=== PATIENT | male | born 1955 | race African-American/Black ===

== ENCOUNTER 2020-07-06 12:17 | Inpatient (IN) | payer MEDICARE, OTHER ==
[~2020-07-06] VITALS: Ht 188 cm; Wt 81.6 kg
[2020-07-06 12:18] VITALS: BP 119/73
--- NOTE | 2020-07-06 12:26 | Emergency Room Report ---
History of Present Illness General Chief Complaint: Generalized Weakness Present Illness HPI 65 YO Male w. hx of renal failure on dialysis presents to the ED from home brought by RA after having dialysis for c/o increased weakness since Last Saturday. Pt. reports cough, sputum production, several episodes of vomiting non- bloody vomitus yesterday, and increased lethargy. Pt. denies fevers, chills, CP, SOB, LE edema/swelling, SINGER or dizziness. Pt. denies cardiac hx and reports recently had normal work up as an outpatient. Pt. reports being compliant regularly with his MWF dialysis, and has several doctors that oversee him. He denies recent travel or ill contacts. He reports he had some visitors the Saturday before onset of his symptoms. He denies abdominal pain or tenderness. Allergies: Coded Allergies: No Known Allergies (Unverified , 07/06/20) COVID-19 Screening Contact w/high risk pt: No Experienced COVID-19 symptoms?: No COVID-19 Testing performed PROVIDER RELATIONS MANAGER: Yes COVID-19 Screening: Negative COVID-19 COVID-19 Testing Source: 1 month ago Patient History Past Medical History: see triage record Past Surgical History: none Pertinent Family History: none Reviewed Nursing Documentation: PMH: Agreed; PSxH: Agreed Review of Systems All Other Systems: negative except mentioned in HPI Physical Exam Vital Signs Date Time Temp Pulse Resp B/P (MAP) Pulse Ox O2 Delivery O2 Flow Rate FiO2 07/06/20 12:09 98.8 97 16 119/73 (88) 100 Room Air Sp02 EP Interpretation: reviewed, normal General Appearance: no apparent distress, alert, GCS 15, non-toxic, lethargic, thin, Chronically Ill Head: normocephalic, atraumatic Eyes: bilateral eye normal inspection, bilateral eye PERRL ENT: hearing grossly normal, normal voice Neck: full range of motion Respiratory: chest non-tender, lungs clear, normal breath sounds, no respiratory distress, no wheezing, speaking full sentences Cardiovascular #1: regular rate, rhythm, no edema, normal capillary refill Gastrointestinal: non tender, soft Musculoskeletal: normal range of motion, gait/station normal, non-tender Neurologic: alert, motor strength/tone normal, oriented x3, sensory intact, responsive, speech normal Psychiatric: judgement/insight normal Skin: no rash, normal color Medical Decision Making PA Attestation Dr. Lozano is my supervising Physician whom patient management has been discussed with. Diagnostic Impression: Primary Impression: NSTEMI (non-ST elevated myocardial infarction) Additional Impression: COVID-19 ER Course 65 YO Male w. hx of renal failure on dialysis presents to the ED from home brought by RA after having dialysis for c/o increased weakness since Last Saturday. Pt. reports cough, sputum production, several episodes of vomiting non- bloody vomitus yesterday, and increased lethargy. Pt. denies fevers, chills, CP, SOB, LE edema/swelling, SINGER or dizziness. Pt. denies cardiac hx and reports recently had normal work up as an outpatient. Pt. reports being compliant regularly with his MWF dialysis, and has several doctors that oversee him. He denies recent travel or ill contacts. He reports he had some visitors the Saturday before onset of his symptoms. He denies abdominal pain or tenderness. Ddx considered but are not limited to : MS, MG, GB, AK, drug intoxication, hypovolemia, infection, rhabdomyolysis, ETOH, CVA/TIA, NMS, CHF, Post- ictal/seizures, Cardiac outflow obstruction, QT-prolongation, Brugada syndrome, or Anemia just to name a few. Vital signs: are WNL, pt. is afebrile H&PE are most consistent with generalized weakness in a patient with chronic illness requiring dialysis. Pt. is non-toxic in appearance. NAD, not showing signs of respiratory distress. ORDERS: - CBC pancytopenia -CMP: elevated BUN - 35 and CR-7.5 c/w on dialysis -BNP:1228 -Troponin:0.108 -CK:WNL -UA: Pending -CXR_ WNL -EK NSR w. RBBB - COVID-19: POSITIVE --COVID lab set ordered, pending results ED INTERVENTIONS: -1g Calcium IV - 325 ASA PO DISPOSITION: at this time pt. will be admitted to Dr. Nash for NSTEMI Dr. Nash agreed to admit the pt. and to continue pt. care management. Labs Test 07/06/20 12:30 White Blood Count 3.2 K/UL (4.8-10.8) Red Blood Count 4.25 M/UL (4.70-6.10) Hemoglobin 13.6 G/DL (14.2-18.0) Hematocrit 41.0 % (42.0-52.0) Mean Corpuscular Volume 96 FL (80-99) Mean Corpuscular Hemoglobin 31.9 PG (27.0-31.0) Mean Corpuscular Hemoglobin Concent 33.1 G/DL (32.0-36.0) Red Cell Distribution Width 16.1 % (11.6-14.8) Platelet Count 138 K/UL (150-450) Mean Platelet Volume 8.9 FL (6.5-10.1) Neutrophils (%) (Auto) % (45.0-75.0) Lymphocytes (%) (Auto) % (20.0-45.0) Monocytes (%) (Auto) % (1.0-10.0) Eosinophils (%) (Auto) % (0.0-3.0) Basophils (%) (Auto) % (0.0-2.0) Differential Total Cells Counted 100 Neutrophils % (Manual) 61 % (45-75) Lymphocytes % (Manual) 30 % (20-45) Monocytes % (Manual) 8 % (1-10) Eosinophils % (Manual) 1 % (0-3) Basophils % (Manual) 0 % (0-2) Band Neutrophils 0 % (0-8) Platelet Estimate Decreased Platelet Morphology Normal Anisocytosis 1+ Sodium Level 136 MMOL/L (136-145) Potassium Level 4.5 MMOL/L (3.5-5.1) Chloride Level 98 MMOL/L (98-107) Carbon Dioxide Level 32 MMOL/L (21-32) Anion Gap 6 mmol/L (5-15) Blood Urea Nitrogen 35 mg/dL (7-18) Creatinine 7.2 MG/DL (0.55-1.30) Estimat Glomerular Filtration Rate 7.6 mL/min (>60) Glucose Level 103 MG/DL (74-106) Calcium Level 8.6 MG/DL (8.5-10.1) Total Bilirubin 0.4 MG/DL (0.2-1.0) Aspartate Amino Transf (AST/SGOT) 37 U/L (15-37) Alanine Aminotransferase (ALT/SGPT) 19 U/L (12-78) Alkaline Phosphatase 52 U/L (46-116) Total Creatine Kinase 96 U/L (26-308) Troponin I 0.108 ng/mL (0.000-0.056) Pro-B-Type Natriuretic Peptide 1228 pg/mL (0-125) Total Protein 7.8 G/DL (6.4-8.2) Albumin 3.6 G/DL (3.4-5.0) Globulin 4.2 g/dL Albumin/Globulin Ratio 0.9 (1.0-2.7) EKG Diagnostic Results Troponin ordered: Yes When was troponin ordered?: Jul 06, 2020 EKG Time: 12:47 Rate: normal - 77 Rhythm: NSR ST Segments: no acute changes Other Impression peaked T-waves, RBBB. ASA given to the pt in ED: Yes KAELYN Scribe Text This Interpretation was scribed by KAELYN Vera. Chest X-Ray Diagnostic Results Chest X-Ray Diagnostic Results : Chest X-Ray Ordered: Yes # of Views/Limited/Complete: 1 View Indication: Other - productive cough, and generalized weakness. EP Interpretation: Yes KAELYN Xray: Interpretation reviewed, by supervising MD Interpretation: no consolidation, no effusion, no pneumothorax Impression: No acute disease Electronically Signed by: Irais Vera PA-C Last Vital Signs Date Time Temp Pulse Resp B/P (MAP) Pulse Ox O2 Delivery O2 Flow Rate FiO2 07/06/20 12:18 97 16 Room Air 07/06/20 12:18 98.8 119/73 100 Status: unchanged Disposition: ADMITTED INPATIENT Condition: Serious Scripts Unable to Obtain Active Prescriptions or Reported Meds Irais Vera Jul 06, 2020 12:26
[2020-07-06 12:55] LABS: HEMOGLOBIN 13.6 G/DL (14.2-18.0); MEAN CORPUSCULAR VOLUME 96 FL (80-99); PLATELET COUNT 138 K/UL (150-450); RED BLOOD COUNT 4.25 M/UL (4.70-6.10); RED CELL DISTRIBUTION WIDTH 16.1 % (11.6-14.8); WHITE BLOOD COUNT 3.2 K/UL (4.8-10.8)
[2020-07-06] MEDS ORDERED: Calcium Gluconate 1gm/50ml 50 ML IVPB ONE (13:00)
[2020-07-06 13:10] LABS: ANION GAP 6 mmol/L (5-15); BLOOD UREA NITROGEN 35 mg/dL (7-18); CALCIUM 8.6 MG/DL (8.5-10.1); CARBON DIOXIDE 32 MMOL/L (21-32); CHLORIDE 98 MMOL/L (98-107); CREATININE 7.2 MG/DL (0.55-1.30); POTASSIUM 4.5 MMOL/L (3.5-5.1); SODIUM 136 MMOL/L (136-145)
[2020-07-06 13:22] LABS: ALANINE AMINOTRANSFERASE 19 U/L (12-78); ALBUMIN 3.6 G/DL (3.4-5.0); ALBUMIN/GLOBULIN RATIO 0.9 (1.0-2.7); ALKALINE PHOSPHATASE 52 U/L (46-116); ASPARTATE AMINO TRANSFERASE 37 U/L (15-37); BILIRUBIN,TOTAL 0.4 MG/DL (0.2-1.0); CREATINE KINASE 96 U/L (26-308)
--- NOTE | 2020-07-06 13:42 | Diagnostic Imaging Report ---
Indication: Chest pain Technique: One view of the chest Comparison: none Findings: Lungs and pleural spaces are clear. Heart size is normal. Impression: No acute process
[2020-07-06 14:30] VITALS: BP 113/68
--- NOTE | 2020-07-06 18:05 | History and Physical Report ---
DATE OF ADMISSION: 07/06/2020 HISTORY OF PRESENT ILLNESS: This is a 65-year-old male who came to the emergency room for having he has been not feeling well. Patient had dialysis today. Has been feeling chills, cough, diarrhea. He is not short of breath, but he has been feeling weakness for the last few days. Patient claims also has been drinking alcohol, not routinely, but last drink was on Saturday. He is also a smoker. Patient currently finished hemodialysis today. PAST MEDICAL HISTORY: Significant for CHF, fluid overload, cardiomyopathy, hypertension, end-stage renal disease, on hemodialysis. MEDICATIONS: See the list. ALLERGIES: NKA. FAMILY HISTORY: Noncontributory. SOCIAL HISTORY: Patient lives at home by himself. He smokes a pack a day. Drinks alcohol occasionally. REVIEW OF SYSTEMS: Generalized weakness, tired, fever, chills, weight loss, poor appetite, and has diarrhea for last few days. PHYSICAL EXAMINATION: VITAL SIGNS: Blood pressure in the hospital 134/70, pulse 80s to 100, respirations 18, temperature no fever. SKIN: Little dry. HEENT: AT/NC. EOMI. PERRLA. NECK: Supple. CHEST: Bilaterally few crackles. CARDIOVASCULAR: Regular rhythm. Tachycardia. ABDOMEN: Soft. Positive bowel sounds. Mild tenderness. EXTREMITIES: No edema. GENITOURINARY: Deferred. LABORATORY DATA: Pending. ASSESSMENT: 1. Palpitation. 2. Rule out sepsis. 3. Cardiac arrhythmia. 4. CHF. 5. Hypertension. 6. Weakness. PLAN: We will admit on tele bed. Consider Cardiology consult. Discussed with . . Continue IV antibiotics. Also consider ID consult. Follow up the laboratories. Cardiac monitoring. We will do the COVID test. London Nash M.D. DR: CARMEN JOB#: [id number] CC:
[2020-07-06 19:09] VITALS: BP 109/66
[2020-07-06] MEDS ORDERED: dexAMETHasone 10mg/ml Inj IV ONE (21:00)
[2020-07-06] MEDS ORDERED: Azithromycin 500 MG in NS 275 ML IV ONE (21:00)
[2020-07-06] MEDS ORDERED: cefTRIAXone 1 GM in NS 55 ML IVPB ONE (21:00)
[2020-07-06 21:28] LABS: INR 1.1 (0.9-1.1)
[2020-07-06 22:00] VITALS: BP 104/67
[2020-07-06 23:30] VITALS: BP 109/69
[2020-07-07 01:30] VITALS: BP 107/78
[2020-07-07 03:30] VITALS: BP 110/85
[2020-07-07 06:30] VITALS: BP 107/69
--- NOTE | 2020-07-07 09:47 | General Progress Note ---
Subjective Constitutional: Reports: chills, fever HEENT: Reports: no symptoms Cardiovascular: Reports: chest pain, irregular heart rate, palpitations Respiratory: Reports: cough Gastrointestinal/Abdominal: Reports: no symptoms Genitourinary: Reports: no symptoms Neurologic/Psychiatric: Reports: no symptoms Endocrine: Reports: no symptoms Allergies: Coded Allergies: No Known Allergies (Unverified , 07/06/20) Subjective feels better Objective Last 24 Hour Vital Signs Date Time Temp Pulse Resp B/P (MAP) Pulse Ox O2 Delivery O2 Flow Rate FiO2 07/07/20 08:47 98.5 82 21 107/69 100 Room Air 07/07/20 06:30 98.5 82 21 107/69 100 Room Air 07/07/20 03:30 98.5 79 20 110/85 99 Room Air 07/07/20 01:30 98.5 78 20 107/78 98 Room Air 07/06/20 23:34 98.5 07/06/20 23:30 98.5 85 20 109/69 96 Room Air 07/06/20 22:00 98.9 73 23 104/67 100 Room Air 07/06/20 19:09 98.8 88 21 109/66 100 Room Air 07/06/20 14:30 98.8 78 21 113/68 98 Room Air 07/06/20 12:18 97 16 Room Air 07/06/20 12:18 98.8 97 16 119/73 100 Room Air 07/06/20 12:09 98.8 97 16 119/73 (88) 100 Room Air Intake and Output 07/06/20 07/07/20 19:00 07:00 Intake Total 50 ml Output Total 0 ml Balance 50 ml Intake IV Total 50 ml Output Urine Total 0 ml Laboratory Tests 07/06/20 12:30: White Blood Count 3.2L, Red Blood Count 4.25L, Hemoglobin 13.6L, Hematocrit 41.0L, Mean Corpuscular Volume 96, Mean Corpuscular Hemoglobin 31.9H, Mean Corpuscular Hemoglobin Concent 33.1, Red Cell Distribution Width 16.1H, Platelet Count 138L, Mean Platelet Volume 8.9, Neutrophils (%) (Auto) , Lymphocytes (%) (Auto) , Monocytes (%) (Auto) , Eosinophils (%) (Auto) , Basophils (%) (Auto) , Differential Total Cells Counted 100, Neutrophils % (Manual) 61, Lymphocytes % (Manual) 30, Monocytes % (Manual) 8, Eosinophils % (Manual) 1, Basophils % (Manual) 0, Band Neutrophils 0, Platelet Estimate DecreasedL, Platelet Morphology Normal, Anisocytosis 1+, Prothrombin Time 11.7H, Prothromb Time International Ratio 1.1, Activated Partial Thromboplast Time 30, D-Dimer 0.49, Sodium Level 136, Potassium Level 4.5, Chloride Level 98, Carbon Dioxide Level 32, Anion Gap 6, Blood Urea Nitrogen 35H, Creatinine 7.2H, Estimat Glomerular Filtration Rate 7.6, Glucose Level 103, Lactic Acid Level 0.80, Calcium Level 8.6, Ferritin 1522H, Total Bilirubin 0.4, Aspartate Amino Transf (AST/SGOT) 37, Alanine Aminotransferase (ALT/SGPT) 19, Alkaline Phosphatase 52, Lactate Dehydrogenase 293H, Total Creatine Kinase 96, Troponin I 0.108H, C-Reactive Protein, Quantitative 7.4H, Pro-B-Type Natriuretic Peptide 1228H, Total Protein 7.8, Albumin 3.6, Globulin 4.2, Albumin/Globulin Ratio 0.9L Height (Feet): 6 Height (Inches): 2.00 Weight (Pounds): 180 General Appearance: alert EENT: PERRL/EOMI Neck: supple Cardiovascular: regular rhythm Respiratory/Chest: crackles/rales Abdomen: non tender, soft Pelvis: normal external exam Genitourinary/Rectal: normal genital exam Extremities: non-tender Edema: trace edema Neurologic: short range air defense artillery II-XII grossly normal Skin: warm/dry Assessment/Plan Assessment/Plan: acs covod 19 chf fluid overload esrd on hd asa r/o mi cardio, pulmo nephro consullt renal diet cont isolation Cedric Nash MD Jul 07, 2020 09:46
[2020-07-07] MEDS ORDERED: HYDROcodone/Acetamin 5/325 tab ORAL PRN (10:15)
[2020-07-07] MEDS ORDERED: dexAMETHasone 10mg/ml Inj IV SCH (10:20)
[2020-07-07 11:56] VITALS: BP 158/79
[2020-07-07 16:00] VITALS: BP_SYST 134; BP_SYST 98; BP_DIAS 69; BP_DIAS 72
--- NOTE | 2020-07-07 16:00 | Consultation ---
DATE OF CONSULTATION: 07/07/2020 INFECTIOUS DISEASE CONSULTATION This consult is for coverage of Dr. Stringer. CONSULTING PHYSICIAN: Sourav Kowalski MD PRIMARY ATTENDING: Cedric Nash MD REASON FOR CONSULTATION: COVID-19 disease. HISTORY OF PRESENT ILLNESS: This is a 65-year-old male admitted yesterday because of weakness. Patient had history of end-stage renal disease. Developed weakness after hemodialysis. The next day, he also had vomiting and diarrhea. No significant coughing and no fever. PAST MEDICAL HISTORY: End-stage renal disease on hemodialysis. ALLERGIES: No known drug allergies. MEDICATIONS: Getting dexamethasone, ceftriaxone, azithromycin, Zofran, [place], Tylenol. SOCIAL HISTORY: Single. Smoker. Admits also drinking occasionally. REVIEW OF SYSTEMS: As per history of present illness. Today has no nausea, vomiting. No fever. PHYSICAL EXAMINATION: VITAL SIGNS: Temperature 98.2, pulse 72, blood pressure is 158/79. GENERAL APPEARANCE: Seems to be well developed, no acute distress. HEAD AND NECK: [place] conjunctivae. HEART: Normal rate. LUNGS: Clear. Patient is on room air oxygen. No respiratory distress. ABDOMEN: Soft, nontender. EXTREMITIES: No edema. NEUROLOGIC: He is awake, alert, oriented x3. LABORATORY DATA: COVID test was positive. WBC 3.2, hemoglobin 13.6, hematocrit 41, platelets 138. Troponin is 0.108. Sodium 136, potassium 4.5, chloride 68, bicarb 32, BUN 35, creatinine 7.2, glucose is 103. Chest x-ray was negative. IMPRESSION: COVID-19 disease. Patient mostly has GI symptoms including diarrhea. Has elevated troponin, likely non-ST elevation [place]. Has end-stage renal disease. Has leukopenia and thrombocytopenia. RECOMMENDATION: SContinue dexamethasone and antibiotics. We will follow up the patient clinically. At the end of my exam, I thank Dr. Nash, for involving me in the care of this patient. Sourav Kowalski M.D. DR: JAYLON JOB#: [id number] CC: LEIA
--- NOTE | 2020-07-07 17:30 | Consultation ---
DATE OF CONSULTATION: 07/07/2020 PULMONARY CONSULTATION CONSULTING PHYSICIAN: Riccardo Carranza MD ATTENDING PHYSICIAN: Cedric Nsah MD REASON FOR CONSULTATION: COVID-19. HISTORY OF PRESENT ILLNESS: This is a 65-year-old male with past medical history of end-stage renal failure, on dialysis (Saturday, Saturday, Saturday), who presented to the ER from home for evaluation of generalized weakness associated with nausea, vomiting, chills, and diarrhea for 3 days. The patient also reports intermittent cough, sputum production, several episodes of vomiting nonbloody vomitus as well as increased lethargy. The patient denies cardiac history. The patient reports being compliant with his dialysis schedule. On evaluation today, the patient appears not in acute distress, showing normal work of breathing on room air, without coughing during my exam. The patient denies fever. The patient does report of a single episode of pain today in his left posterior mid-back. The patient denies history of kidney stone or any urinary symptoms. The patient is positive for COVID-19. Chest x-ray showed clear lungs and pleural spaces. Initial laboratory studies showed pancytopenia, elevated BUN and creatinine, and troponin 0.18. Initial laboratory studies showed pancytopenia, elevated BUN and creatinine, troponin 0.108, CRP 7.4, LDH 293, ferritin 1522, and D-dimer 0.49. The patient received 1 gram calcium IV, 325 mg aspirin oral in the ED, and is now admitted to the hospital for COVID-19 infection and NSTEMI. PAST MEDICAL HISTORY: End-stage renal disease, on dialysis. MEDICATIONS: Full list of home medication is unavailable at this time. ALLERGIES: No known allergies. FAMILY HISTORY: Unknown. PERSONAL/SOCIAL HISTORY: Lives at home. REVIEW OF SYSTEMS: Negative except as mentioned in HPI. PHYSICAL EXAMINATION: VITAL SIGNS: Blood pressure 158/79, heart rate 86, respiratory rate 21, weight 81 kg, and height 188 cm. HEENT: Head exam reveals that the head is normocephalic, atraumatic without deformity or unusual swelling. Pupils are PERRLA. Nasal mucosa is pink. Vision is normal. CHEST AND LUNGS: Reveals clear, normal, symmetrical breath sounds with no adventitious sounds. CARDIOVASCULAR: Reveals normal S1, S2 without murmurs, rubs, or clicks. ABDOMEN: Soft with no tenderness or organomegaly. RECTAL: Deferred. MUSCULOSKELETAL: There is no tenderness to palpation. NEUROLOGICAL: Cranial nerves II through XII are intact. LABORATORY DATA: Lab testing shows WBC 3.2, RBC 4.25, hemoglobin 13.6, hematocrit 41.0, and platelet count 138,000. Chemistries show BUN 35, creatinine 7.2, ferritin 1522, LDH 293, troponin 0.108, CRP 7.4, and BNP 1228. IMPRESSION: 1. COVID-19 infection. - The patient is currently saturating well on room air. - Chest x-ray is clear. - Given his normoxemia, no specific intervention is needed for COVID-19 at this point. - Continue monitoring SaO2, and provide supplemental oxygen as needed. - Continue respiratory isolation. 2. NSTEMI. - Rule out NH. - Cardio following. 3. ESRD, on dialysis. - Continue dialysis. Thank you for your consultation and we will follow carefully. The care for this patient was discussed with my supervising physician. Time spent on this case was 31 minutes. Riccardo Carranza M.D. KAELYN Munoz DR: Rosyln JOB#: [id number] CC: LEIA
--- NOTE | 2020-07-07 18:22 | Cardiology Progress Note ---
Assessment/Plan Assessment/Plan The patient is seen and examined, full consult note is dictated. Objective Last 24 Hour Vital Signs Date Time Temp Pulse Resp B/P (MAP) Pulse Ox O2 Delivery O2 Flow Rate FiO2 07/07/20 16:00 97.1 70 20 134/72 (92) 97 07/07/20 16:00 95 07/07/20 12:00 72 07/07/20 11:56 98.2 86 21 158/79 (105) 99 07/07/20 10:40 Room Air 07/07/20 09:19 87 07/07/20 08:47 98.5 82 21 107/69 100 Room Air 07/07/20 06:30 98.5 82 21 107/69 100 Room Air 07/07/20 03:30 98.5 79 20 110/85 99 Room Air 07/07/20 01:30 98.5 78 20 107/78 98 Room Air 07/06/20 23:34 98.5 07/06/20 23:30 98.5 85 20 109/69 96 Room Air 07/06/20 22:00 98.9 73 23 104/67 100 Room Air 07/06/20 19:09 98.8 88 21 109/66 100 Room Air Intake and Output 07/06/20 07/07/20 19:00 07:00 Intake Total 50 ml Output Total 0 ml Balance 50 ml IV Total 50 ml Output Urine Total 0 ml Microbiology Date/Time Source Procedure Growth Status 07/06/20 17:50 Nasopharynx SARS-CoV-2 RdRp Gene Assay - Final Complete Jose Don MD Jul 07, 2020 18:22
[2020-07-07] MEDS: Enoxaparin 30mg Inj SUBQ SCH (18:37)
[2020-07-07] MEDS: Metoprolol Succinate XL 25mg tab ORAL SCH (18:38)
[2020-07-07] MEDS: Aspirin Baby 81mg ORAL SCH (18:38)
--- NOTE | 2020-07-07 19:02 | Consultation ---
DATE OF CONSULTATION: 07/07/2020 CARDIOLOGY CONSULTATION CONSULTING PHYSICIAN: Jose Don MD. REFERRING PHYSICIAN: Cedric Nash MD. REASON FOR CONSULTATION: Management of non-ST elevation myocardial infarction. HISTORY OF PRESENT ILLNESS: The patient is a very unfortunate 65-year-old gentleman who presents to the hospital with complaints of increased generalized weakness since last Saturday with associated productive cough as well as nausea and nonbloody vomiting and altered level of consciousness. The patient denied any fever, chest pain, or shortness of breath. His past medical history is significant for end-stage renal disease, on hemodialysis three days a week and according to him he has been compliant with his dialysis. At the time of arrival to this facility, blood pressure was 119/73 mmHg and heart rate was 97. He was afebrile. PAST MEDICAL HISTORY: Significant for end-stage renal disease. MEDICATIONS: List of medications unknown. ALLERGIES: No known drug allergies. FAMILY HISTORY: No premature coronary artery disease in the first-degree relatives. SURGICAL HISTORY: None besides dialysis AV shunt. REVIEW OF SYSTEMS: Twelve system review done and is essentially negative.CONSTITUTIONAL: Complains of generalized weakness and fatigue. No fever and chills. HEENT: The patient denies any headache, diplopia, blurred vision. CARDIOVASCULAR: Positive for shortness of breath with exertion, but no chest pain. No PND, orthopnea, or leg swelling. PULMONARY: Positive for nonproductive cough and shortness of breath, but no hemoptysis. GASTROINTESTINAL: Positive for nausea and vomiting, which is mostly nonbloody emesis. No abdominal pain or GI bleed. GENITOURINARY: Denies any hematuria, dysuria, or incontinence. NEUROLOGIC: Denies any motor dysfunction, sensory deficit, or altered speech. PHYSICAL EXAMINATION: VITAL SIGNS: Blood pressure is 119/73, pulse of 97, respirations 16, temperature 98.8 degrees Fahrenheit. O2 saturation 100% on room air. GENERAL: The patient is a very unfortunate 65-year-old gentleman, in no apparent respiratory distress, lethargic, chronically ill-looking and cachectic. HEENT: Atraumatic and normocephalic. Anicteric. Pupils are equal, round, and reactive to light and accommodation. Extraocular muscles intact. NECK: JVP is less than 5 cm. No carotid bruit. Carotid upstrokes 2+ bilaterally. CARDIOVASCULAR: Normal S1, S2. Regular rate and rhythm. No murmurs, gallops, or rubs. PMI is at fourth intercostal space in the midclavicular line. LUNGS: Clear to auscultation bilaterally. ABDOMEN: Soft, nontender, and nondistended. No hepatosplenomegaly. Positive bowel sounds. EXTREMITIES: No evidence of edema, clubbing, or cyanosis. LABORATORY FINDINGS: WBC is 3.2, hemoglobin of 13.6, hematocrit 41.0, platelet count 138,000. Sodium 136, potassium 4.5, chloride 98, bicarbonate 32, BUN 35, creatinine 7.2. Glucose is 103. Calcium is 8.6. Troponin I was 0.108. ProBNP was 1228. INR was 1.1. D-dimer was 0.49. Chest x-ray showed no acute cardiopulmonary disease. A 12-lead electrocardiogram was significant for sinus rhythm with trifascicular block including first-degree AV block, left anterior fascicular block, and right bundle-branch block. There was no evidence for acute ischemic features, heart rate of 67. ASSESSMENT AND PLAN: The patient is a very unfortunate 65-year-old gentleman seen in Cardiology consultation. 1. Slight elevation of troponin I level in this patient could be suddenly due to troponin leakage with end-stage renal disease, versus type 2 non-ST elevation myocardial infarction versus COVID-19 infection. We would like to obtain serial troponin I level measurement. The patient requires to be on aspirin as well as enoxaparin DVT prophylaxis dose. We will metoprolol for double product control and atorvastatin. 2. 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 We will continue monitoring heart rate and rhythm. 3. COVID-19 infection. Chest x-ray showed no acute cardiopulmonary disease. Lovenox DVT prophylactic dose would be adequate. 4. End-stage renal disease. I would like to thank Dr. Nash for the courtesy of this consultation. Jose Don M.D. DR: ISACC JOB#: [id number] CC:
[2020-07-07 20:00] VITALS: BP 105/61
[2020-07-07] MEDS: Atorvastatin 20mg tab ORAL SCH (20:55)
[2020-07-07] MEDS ORDERED: cefTRIAXone 1 GM in D5W 55 ML IVPB SCH (21:00)
--- NOTE | 2020-07-07 21:45 | Consultation ---
DATE OF CONSULTATION: 07/07/2020 NEPHROLOGY CONSULTATION CONSULTING PHYSICIAN: Cheryl Condon MD REFERRING PHYSICIAN: London Nash MD REASON FOR CONSULTATION: End-stage renal disease, need for dialysis. HISTORY OF PRESENT ILLNESS: This patient is an unfortunate 65-year-old male with past medical history significant for end-stage renal disease, anemia of chronic kidney disease, renal osteodystrophy, hypertension, who was then presented to [facility]. He is complaining of increasing generalized weakness, associated with productive cough as well as nausea and vomiting and altered mental status. The patient denies having any fever, chills, or shortness of breath and he was evaluated in the ER, found to have blood pressure of 119/73, pulse of 97. The patient was found to be COVID positive, was admitted in the isolation unit. I would follow up for management of renal disease and electrolyte imbalance. PAST MEDICAL HISTORY: Includin. End-stage renal disease. 2. Anemia of chronic kidney disease. 3. Renal osteodystrophy. 4. Hypertension. MEDICATIONS: List was reviewed. ALLERGIES: No known drug allergies. FAMILY HISTORY: Negative. PAST SURGICAL HISTORY: History of AV fistula placement. REVIEW OF SYSTEMS: GENERAL: Complained of generalized weakness and fatigue. There is no fever or chills. HEAD AND NECK: Denies any dysphagia, odynophagia, blurry vision, or neck stiffness. PULMONARY: Complained of shortness of breath, cough. CARDIOVASCULAR: Complained of shortness of breath. No orthopnea or PND or leg swelling. GASTROINTESTINAL: Complained of nausea and vomiting. No melena, hematemesis, or hematochezia. GENITOURINARY: Denies any dysuria, frequency, or hematuria. MUSCULOSKELETAL: Denies any weakness or numbness. PHYSICAL EXAMINATION: VITAL SIGNS: The patient has a temperature of 97, blood pressure 134/72, pulse rate of 97. HEAD AND NECK: No JVP. No LAD. No thyromegaly. Extraocular movement intact. Pupils are reactive to light and accommodation. LUNGS: Clear to auscultation. CARDIAC: Regular rate and rhythm. S1 and S2. No murmur. No rub. ABDOMEN: Soft, nontender, and nondistended. EXTREMITIES: No edema. No clubbing. No cyanosis. LABORATORY DATA: Sodium of 136, potassium of 4.5, 98 chloride, 32 bicarbonate, BUN of 35, creatinine of 7.2, and calcium of 8.6. Troponin 0.18. BNP of 1228. CBC revealed wbc count of 3.2, hemoglobin of 13.5, hematocrit of 41, and platelet count of 138. ASSESSMENT: 1. End-stage renal disease. 2. Anemia of chronic kidney disease. At this time, hemoglobin is acceptable level. 3. Renal osteodystrophy. Need to check the calcium, phosphorous, and PTH. 4. Non-ST elevation [place]. 5. COVID infection. PLAN: The plan for the patient is to receive the dialysis. Monitor renal function and electrolytes closely. Check the calcium, phosphorous, and PTH for evaluation of renal osteodystrophy. Monitor respiratory status closely. Again, I would like to thank Dr. Nash for letting me participate in the care of this patient. Cheryl Condon M.D. DR: SILAS JOB#: [id number] CC:
[2020-07-08] VITALS: BP 108/57
[2020-07-08 04:00] VITALS: BP 120/74
[2020-07-08 08:00] VITALS: BP 102/61
[2020-07-08] MEDS: Metoprolol Succinate XL 25mg tab ORAL SCH (09:00)
[2020-07-08] MEDS ORDERED: dexAMETHasone 10mg/ml Inj IV SCH (09:00)
[2020-07-08 09:09] LABS: BLOOD UREA NITROGEN 85 mg/dL (7-18); CARBON DIOXIDE 25 MMOL/L (21-32); CHLORIDE 99 MMOL/L (98-107); POTASSIUM 4.2 MMOL/L (3.5-5.1); SODIUM 138 MMOL/L (136-145)
[2020-07-08 09:10] LABS: CALCIUM 7.6 MG/DL (8.5-10.1); PHOSPHORUS 6.2 MG/DL (2.5-4.9)
[2020-07-08] MEDS: Aspirin Baby 81mg ORAL SCH (09:11)
--- NOTE | 2020-07-08 09:25 | Pulmonology Progress Note ---
Subjective ROS Limited/Unobtainable: No Interval Events: none major reported per nursing Constitutional: Reports: fatigue HEENT: Repors: no symptoms Respiratory: Reports: no symptoms Cardiovascular: Reports: no symptoms Gastrointestinal/Abdominal: Reports: no symptoms Allergies: Coded Allergies: No Known Allergies (Unverified , 07/06/20) Objective Last 24 Hour Vital Signs Date Time Temp Pulse Resp B/P (MAP) Pulse Ox O2 Delivery O2 Flow Rate FiO2 07/08/20 09:00 67 120/74 07/08/20 04:00 97.6 70 20 120/74 (89) 97 07/08/20 04:00 67 07/08/20 00:00 98.6 79 18 108/57 (74) 97 07/08/20 00:00 67 07/07/20 23:00 Room Air 07/07/20 20:00 72 07/07/20 20:00 98.4 79 19 105/61 (76) 97 07/07/20 18:38 95 134/72 07/07/20 16:00 97.1 70 20 134/72 (92) 97 07/07/20 16:00 95 07/07/20 12:00 72 07/07/20 11:56 98.2 86 21 158/79 (105) 99 07/07/20 10:40 Room Air Intake and Output 07/07/20 07/08/20 18:59 06:59 Intake Total 960 ml 480 ml Balance 960 ml 480 ml Intake Oral 960 ml 480 ml # Voids 2 Objective 07/08 remains on room air General Appearance: WD/WN, no acute distress HEENT: normocephalic, atraumatic Respiratory: lungs clear Cardiovascular: normal rate, regular rhythm Abdomen: soft, non tender Microbiology Date/Time Source Procedure Growth Status 07/06/20 17:50 Nasopharynx SARS-CoV-2 RdRp Gene Assay - Final Complete Laboratory Tests 07/07/20 18:45: Troponin I 0.072H 07/08/20 06:00: Sodium Level 138, Potassium Level 4.2, Chloride Level 99, Carbon Dioxide Level 25, Blood Urea Nitrogen 85H, Creatinine 11.0H, Estimat Glomerular Filtration Rate 5.7, Glucose Level 108H, Calcium Level 7.6L, Phosphorus Level 6.2H Current Medications Medications (Trade) Dose Ordered Sig/Simon Route PRN Reason Start Time Stop Time Status Last Admin Dose Admin Acetaminophen (Tylenol) 650 mg Q6H PRN ORAL Pain Scale (3-5) 07/07/20 10:15 08/06/20 10:14 Acetaminophen/ Hydrocodone Bitart ([place] 5/325) 1 tab Q4H PRN ORAL 6-10 07/07/20 10:15 07/14/20 10:14 07/08/20 00:15 Aspirin (ASA) 81 mg DAILY ORAL 07/07/20 17:45 08/21/20 17:44 07/08/20 09:11 Atorvastatin Calcium (Lipitor) 40 mg BEDTIME ORAL 07/07/20 21:00 10/05/20 20:59 07/07/20 20:55 Clonidine HCl (Catapres Tab) 0.1 mg TIDPRN PRN ORAL SBP>160 07/07/20 17:48 10/05/20 17:47 Enoxaparin Sodium (Lovenox) 30 mg Q24H SUBQ 07/07/20 18:00 10/05/20 17:59 07/07/20 18:37 Metoprolol Succinate (Toprol XL) 25 mg DAILY ORAL 07/07/20 17:45 10/05/20 17:44 07/07/20 18:38 Ondansetron HCl (Zofran) 4 mg Q6H PRN IVP Nausea & Vomiting 07/07/20 10:15 08/06/20 10:14 Assessment/Plan Assessment/Plan 1. COVID-19 infection. - The patient is currently saturating well on room air. - Chest x-ray shows no acute findings - Given his normoxemia, no specific intervention is needed for COVID-19 at this point. - Continue monitoring SaO2, and provide supplemental oxygen as needed. - Continue respiratory isolation. 2. NSTEMI. - Rule out [place]. - Cardio following. 3. ESRD, on dialysis. Thank you for your consultation and we will follow carefully. The care for this patient was discussed with my supervising physician. Time spent on this case was 31 minutes. Jamal Fiore Jul 08, 2020 09:25 Riccardo Carranza MD Jul 08, 2020 11:38
[2020-07-08 12:00] VITALS: BP 120/81
--- NOTE | 2020-07-08 13:27 | General Progress Note ---
Subjective Allergies: Coded Allergies: No Known Allergies (Unverified , 07/06/20) Subjective feels better sob better covid 19 Objective Last 24 Hour Vital Signs Date Time Temp Pulse Resp B/P (MAP) Pulse Ox O2 Delivery O2 Flow Rate FiO2 07/08/20 12:00 76 07/08/20 09:00 Room Air 07/08/20 09:00 67 120/74 07/08/20 08:00 98.0 78 20 102/61 (75) 99 07/08/20 08:00 75 07/08/20 04:00 97.6 70 20 120/74 (89) 97 07/08/20 04:00 67 07/08/20 00:00 98.6 79 18 108/57 (74) 97 07/08/20 00:00 67 07/07/20 23:00 Room Air 07/07/20 20:00 72 07/07/20 20:00 98.4 79 19 105/61 (76) 97 07/07/20 18:38 95 134/72 07/07/20 16:00 97.1 70 20 134/72 (92) 97 07/07/20 16:00 95 Intake and Output 07/07/20 07/08/20 19:00 07:00 Intake Total 960 ml 480 ml Balance 960 ml 480 ml Intake Oral 960 ml 480 ml # Voids 2 Laboratory Tests 07/07/20 18:45: Troponin I 0.072H 07/08/20 06:00: Sodium Level 138, Potassium Level 4.2, Chloride Level 99, Carbon Dioxide Level 25, Blood Urea Nitrogen 85H, Creatinine 11.0H, Estimat Glomerular Filtration Rate 5.7, Glucose Level 108H, Calcium Level 7.6L, Phosphorus Level 6.2H Height (Feet): 6 Height (Inches): 2.00 Weight (Pounds): 180 General Appearance: alert EENT: PERRL/EOMI Neck: supple Cardiovascular: regular rhythm Respiratory/Chest: normal breath sounds Abdomen: non tender, soft, no organomegaly Extremities: non-tender Neurologic: genetic counsellor II-XII grossly normal Assessment/Plan Assessment/Plan: acs pvc hypotension hold bp meds monitor bp covod 19 chf fluid overload esrd on hd asa r/o mi cardio, pulmo nephro consullt renal diet cont isolation Cedric Nash MD Jul 08, 2020 13:27
--- NOTE | 2020-07-08 15:29 | Infectious Diseases Prog Note ---
Assessment/Plan Assessment/Plan IMPRESSION: COVID-19 disease. on room air oxygen Non-ST elevation [place]. End-stage renal disease. Leukopenia Thrombocytopenia. RECOMMENDATION: Observe off antibiotics Subjective ROS Limited/Unobtainable: Yes Constitutional: Reports: other - dosen't feel good Allergies: Coded Allergies: No Known Allergies (Unverified , 07/06/20) Objective Last 24 Hour Vital Signs Date Time Temp Pulse Resp B/P (MAP) Pulse Ox O2 Delivery O2 Flow Rate FiO2 07/08/20 12:00 76 07/08/20 12:00 96.8 76 19 120/81 (94) 98 07/08/20 09:00 Room Air 07/08/20 09:00 67 120/74 07/08/20 08:00 98.0 78 20 102/61 (75) 99 07/08/20 08:00 75 07/08/20 04:00 97.6 70 20 120/74 (89) 97 07/08/20 04:00 67 07/08/20 00:00 98.6 79 18 108/57 (74) 97 07/08/20 00:00 67 07/07/20 23:00 Room Air 07/07/20 20:00 72 07/07/20 20:00 98.4 79 19 105/61 (76) 97 07/07/20 18:38 95 134/72 07/07/20 16:00 97.1 70 20 134/72 (92) 97 07/07/20 16:00 95 Height (Feet): 6 Height (Inches): 2.00 Weight (Pounds): 180 General Appearance: no acute distress HEENT: mucous membranes moist Respiratory/Chest: lungs clear Cardiovascular: normal rate Abdomen: soft, non tender Extremities: no edema Neurologic/Psychiatric: alert, responsive Microbiology Date/Time Source Procedure Growth Status 07/06/20 17:50 Nasopharynx SARS-CoV-2 RdRp Gene Assay - Final Complete Laboratory Tests Test 07/07/20 18:45 07/08/20 06:00 Troponin I 0.072 ng/mL (0.000-0.056) Sodium Level 138 MMOL/L (136-145) Potassium Level 4.2 MMOL/L (3.5-5.1) Chloride Level 99 MMOL/L (98-107) Carbon Dioxide Level 25 MMOL/L (21-32) Blood Urea Nitrogen 85 mg/dL (7-18) H Creatinine 11.0 MG/DL (0.55-1.30) H Estimat Glomerular Filtration Rate 5.7 mL/min (>60) Glucose Level 108 MG/DL (74-106) H Calcium Level 7.6 MG/DL (8.5-10.1) L Phosphorus Level 6.2 MG/DL (2.5-4.9) H Hepatitis B Surface Antigen Pending Current Medications Medications (Trade) Dose Ordered Sig/Simon Route PRN Reason Start Time Stop Time Status Last Admin Dose Admin Acetaminophen (Tylenol) 650 mg Q6H PRN ORAL Pain Scale (3-5) 07/07/20 10:15 08/06/20 10:14 Acetaminophen/ Hydrocodone Bitart ([place] 5/325) 1 tab Q4H PRN ORAL 6-10 07/07/20 10:15 07/14/20 10:14 07/08/20 00:15 Aspirin (ASA) 81 mg DAILY ORAL 07/07/20 17:45 08/21/20 17:44 07/08/20 09:11 Atorvastatin Calcium (Lipitor) 40 mg BEDTIME ORAL 07/07/20 21:00 10/05/20 20:59 07/07/20 20:55 Clonidine HCl (Catapres Tab) 0.1 mg TIDPRN PRN ORAL SBP>160 07/07/20 17:48 10/05/20 17:47 Enoxaparin Sodium (Lovenox) 30 mg Q24H SUBQ 07/07/20 18:00 10/05/20 17:59 07/07/20 18:37 Metoprolol Succinate (Toprol XL) 25 mg DAILY ORAL 07/07/20 17:45 10/05/20 17:44 07/07/20 18:38 Ondansetron HCl (Zofran) 4 mg Q6H PRN IVP Nausea & Vomiting 07/07/20 10:15 08/06/20 10:14 Sourav Kowalski MD Jul 08, 2020 15:29
--- NOTE | 2020-07-08 15:48 | Nephrology Progress Note ---
Assessment/Plan Assessment 1. End-stage renal disease. 2. Anemia of chronic kidney disease. 3. Renal osteodystrophy 4. Non-ST elevation [place]. 5. COVID infection. Plan plan dialysis as schedule monitoring phos,and pth hold epogen Subjective Constitutional: Reports: no symptoms Objective Objective Last 24 Hour Vital Signs Date Time Temp Pulse Resp B/P (MAP) Pulse Ox O2 Delivery O2 Flow Rate FiO2 07/08/20 12:00 76 07/08/20 12:00 96.8 76 19 120/81 (94) 98 07/08/20 09:00 Room Air 07/08/20 09:00 67 120/74 07/08/20 08:00 98.0 78 20 102/61 (75) 99 07/08/20 08:00 75 07/08/20 04:00 97.6 70 20 120/74 (89) 97 07/08/20 04:00 67 07/08/20 00:00 98.6 79 18 108/57 (74) 97 07/08/20 00:00 67 07/07/20 23:00 Room Air 07/07/20 20:00 72 07/07/20 20:00 98.4 79 19 105/61 (76) 97 07/07/20 18:38 95 134/72 07/07/20 16:00 97.1 70 20 134/72 (92) 97 07/07/20 16:00 95 Intake and Output 07/07/20 07/08/20 19:00 07:00 Intake Total 960 ml 480 ml Balance 960 ml 480 ml Intake Oral 960 ml 480 ml # Voids 2 Laboratory Tests 07/07/20 18:45: Troponin I 0.072H 07/08/20 06:00: Sodium Level 138, Potassium Level 4.2, Chloride Level 99, Carbon Dioxide Level 25, Blood Urea Nitrogen 85H, Creatinine 11.0H, Estimat Glomerular Filtration Rate 5.7, Glucose Level 108H, Calcium Level 7.6L, Phosphorus Level 6.2H, Hepatitis B Surface Antigen [Pending] Height (Feet): 6 Height (Inches): 2.00 Weight (Pounds): 180 Objective HEAD AND NECK: No JVP. No LAD. No thyromegaly. Extraocular movement intact. Pupils are reactive to light and accommodation. LUNGS: Clear to auscultation. CARDIAC: Regular rate and rhythm. S1 and S2. No murmur. No rub. ABDOMEN: Soft, nontender, and nondistended. EXTREMITIES: No edema. No clubbing. No cyanosis. Cheryl Condon MD Jul 08, 2020 15:48
[2020-07-08 16:00] VITALS: BP 141/81
[2020-07-08] MEDS: Enoxaparin 30mg Inj SUBQ SCH (17:53)
[2020-07-08 20:00] VITALS: BP 128/82
[2020-07-08] MEDS: Atorvastatin 20mg tab ORAL SCH (20:08)
[2020-07-09] VITALS (9 sets, daily range): BP systolic 110–162; BP diastolic 63–78
[2020-07-09] MEDS: Metoprolol Succinate XL 25mg tab ORAL SCH (08:35)
[2020-07-09] MEDS: Aspirin Baby 81mg ORAL SCH (08:35)
--- NOTE | 2020-07-09 11:15 | Nephrology Progress Note ---
Assessment/Plan Assessment 1. End-stage renal disease. 2. Anemia of chronic kidney disease. 3. Renal osteodystrophy 4. Non-ST elevation [place]. 5. COVID infection. Plan plan dialysis as schedule monitoring phos,and pth hold epogen Objective Objective Last 24 Hour Vital Signs Date Time Temp Pulse Resp B/P (MAP) Pulse Ox O2 Delivery O2 Flow Rate FiO2 07/09/20 09:00 Room Air 07/09/20 08:35 81 121/70 07/09/20 08:00 98.9 81 19 121/70 (87) 97 07/09/20 04:00 98.5 77 18 130/73 (92) 96 07/09/20 01:30 99.6 07/09/20 00:00 100.1 89 18 112/68 (83) 93 07/08/20 21:25 99.1 07/08/20 21:00 Room Air 07/08/20 20:00 100.8 91 20 128/82 (97) 95 07/08/20 16:00 97.4 74 20 141/81 (101) 100 07/08/20 16:00 92 07/08/20 12:00 76 07/08/20 12:00 96.8 76 19 120/81 (94) 98 Intake and Output 07/08/20 07/09/20 19:00 07:00 Intake Total 800 ml 360 ml Output Total 2550 ml Balance -1750 ml 360 ml Intake Oral 800 ml 360 ml Stool Total 550 ml Hemodialysis UF 2000 ml # Bowel Movements 3 Height (Feet): 6 Height (Inches): 2.00 Weight (Pounds): 180 Objective HEAD AND NECK: No JVP. No LAD. No thyromegaly. Extraocular movement intact. Pupils are reactive to light and accommodation. LUNGS: Clear to auscultation. CARDIAC: Regular rate and rhythm. S1 and S2. No murmur. No rub. ABDOMEN: Soft, nontender, and nondistended. EXTREMITIES: No edema. No clubbing. No cyanosis. Cheryl Condon MD Jul 09, 2020 11:15
--- NOTE | 2020-07-09 12:36 | Pulmonology Progress Note ---
Subjective ROS Limited/Unobtainable: Yes Interval Events: None new Constitutional: Reports: other - dosen't feel good HEENT: Repors: no symptoms Respiratory: Reports: no symptoms Cardiovascular: Reports: no symptoms Gastrointestinal/Abdominal: Reports: no symptoms Allergies: Coded Allergies: No Known Allergies (Unverified , 07/06/20) Objective Last 24 Hour Vital Signs Date Time Temp Pulse Resp B/P (MAP) Pulse Ox O2 Delivery O2 Flow Rate FiO2 07/09/20 12:00 97.2 73 18 129/68 (88) 98 07/09/20 09:00 Room Air 07/09/20 08:35 81 121/70 07/09/20 08:00 98.9 81 19 121/70 (87) 97 07/09/20 04:00 98.5 77 18 130/73 (92) 96 07/09/20 01:30 99.6 07/09/20 00:00 100.1 89 18 112/68 (83) 93 07/08/20 21:25 99.1 07/08/20 21:00 Room Air 07/08/20 20:00 100.8 91 20 128/82 (97) 95 07/08/20 16:00 97.4 74 20 141/81 (101) 100 07/08/20 16:00 92 Intake and Output 07/08/20 07/09/20 19:00 07:00 Intake Total 800 ml 360 ml Output Total 2550 ml Balance -1750 ml 360 ml Intake Oral 800 ml 360 ml Stool Total 550 ml Hemodialysis UF 2000 ml # Bowel Movements 3 General Appearance: WD/WN, no acute distress HEENT: normocephalic, atraumatic Respiratory: lungs clear Cardiovascular: normal rate, regular rhythm Abdomen: soft, non tender Microbiology Date/Time Source Procedure Growth Status 07/06/20 17:50 Nasopharynx SARS-CoV-2 RdRp Gene Assay - Final Complete 07/06/20 17:40 Nasal Nares MRSA Culture - Final NO METHICILLIN RESISTANT STAPH AUREUS... Complete Current Medications Medications (Trade) Dose Ordered Sig/Simon Route PRN Reason Start Time Stop Time Status Last Admin Dose Admin Acetaminophen (Tylenol) 650 mg Q4H PRN ORAL Temp >100.5 07/08/20 21:00 08/07/20 20:59 07/09/20 01:00 Acetaminophen (Tylenol) 650 mg Q6H PRN ORAL Pain Scale (3-5) 07/07/20 10:15 08/06/20 10:14 Acetaminophen/ Hydrocodone Bitart ([place] 5/325) 1 tab Q4H PRN ORAL 6-10 07/07/20 10:15 07/14/20 10:14 07/08/20 00:15 Aspirin (ASA) 81 mg DAILY ORAL 07/07/20 17:45 08/21/20 17:44 07/09/20 08:35 Atorvastatin Calcium (Lipitor) 40 mg BEDTIME ORAL 07/07/20 21:00 10/05/20 20:59 07/08/20 20:08 Clonidine HCl (Catapres Tab) 0.1 mg TIDPRN PRN ORAL SBP>160 07/07/20 17:48 10/05/20 17:47 Enoxaparin Sodium (Lovenox) 30 mg Q24H SUBQ 07/07/20 18:00 10/05/20 17:59 07/07/20 18:37 Metoprolol Succinate (Toprol XL) 25 mg DAILY ORAL 07/07/20 17:45 10/05/20 17:44 07/09/20 08:35 Ondansetron HCl (Zofran) 4 mg Q6H PRN IVP Nausea & Vomiting 07/07/20 10:15 08/06/20 10:14 Assessment/Plan Assessment/Plan 1. COVID-19 infection. - The patient is currently saturating well on room air. - Chest x-ray shows no acute findings - Given his normoxemia, no specific intervention is needed for COVID-19 at this point. - Continue monitoring SaO2, and provide supplemental oxygen as needed. - Continue respiratory isolation. 2. Troponin leak 3. ESRD, on dialysis. Riccardo Carranza MD Jul 09, 2020 12:36
--- NOTE | 2020-07-09 14:01 | Infectious Diseases Prog Note ---
Assessment/Plan Assessment/Plan IMPRESSION: COVID-19 disease. on room air oxygen Non-ST elevation [place]. End-stage renal disease. Leukopenia Thrombocytopenia. RECOMMENDATION: Observe off antibiotics Subjective ROS Limited/Unobtainable: Yes Constitutional: Denies: fever Allergies: Coded Allergies: No Known Allergies (Unverified , 07/06/20) Objective Last 24 Hour Vital Signs Date Time Temp Pulse Resp B/P (MAP) Pulse Ox O2 Delivery O2 Flow Rate FiO2 07/09/20 12:00 97.2 73 18 129/68 (88) 98 07/09/20 09:00 Room Air 07/09/20 08:35 81 121/70 07/09/20 08:00 98.9 81 19 121/70 (87) 97 07/09/20 04:00 98.5 77 18 130/73 (92) 96 07/09/20 01:30 99.6 07/09/20 00:00 100.1 89 18 112/68 (83) 93 07/08/20 21:25 99.1 07/08/20 21:00 Room Air 07/08/20 20:00 100.8 91 20 128/82 (97) 95 07/08/20 16:00 97.4 74 20 141/81 (101) 100 07/08/20 16:00 92 Height (Feet): 6 Height (Inches): 2.00 Weight (Pounds): 180 General Appearance: no acute distress HEENT: mucous membranes moist Respiratory/Chest: no respiratory distress Cardiovascular: normal rate Abdomen: soft, non tender Extremities: no edema Neurologic/Psychiatric: other - sleeping Microbiology Date/Time Source Procedure Growth Status 07/06/20 20:15 Blood Blood Culture - Preliminary NO GROWTH AFTER 48 HOURS Resulted 07/06/20 20:00 Blood Blood Culture - Preliminary NO GROWTH AFTER 48 HOURS Resulted 07/06/20 17:50 Nasopharynx SARS-CoV-2 RdRp Gene Assay - Final Complete 07/06/20 17:40 Nasal Nares MRSA Culture - Final NO METHICILLIN RESISTANT STAPH AUREUS... Complete Current Medications Medications (Trade) Dose Ordered Sig/Simon Route PRN Reason Start Time Stop Time Status Last Admin Dose Admin Acetaminophen (Tylenol) 650 mg Q4H PRN ORAL Temp >100.5 07/08/20 21:00 08/07/20 20:59 07/09/20 01:00 Acetaminophen (Tylenol) 650 mg Q6H PRN ORAL Pain Scale (3-5) 07/07/20 10:15 08/06/20 10:14 Acetaminophen/ Hydrocodone Bitart ([place] 5/325) 1 tab Q4H PRN ORAL 6-10 07/07/20 10:15 07/14/20 10:14 07/08/20 00:15 Aspirin (ASA) 81 mg DAILY ORAL 07/07/20 17:45 08/21/20 17:44 07/09/20 08:35 Atorvastatin Calcium (Lipitor) 40 mg BEDTIME ORAL 07/07/20 21:00 10/05/20 20:59 07/08/20 20:08 Clonidine HCl (Catapres Tab) 0.1 mg TIDPRN PRN ORAL SBP>160 07/07/20 17:48 10/05/20 17:47 Enoxaparin Sodium (Lovenox) 30 mg Q24H SUBQ 07/07/20 18:00 10/05/20 17:59 07/07/20 18:37 Metoprolol Succinate (Toprol XL) 25 mg DAILY ORAL 07/07/20 17:45 10/05/20 17:44 07/09/20 08:35 Ondansetron HCl (Zofran) 4 mg Q6H PRN IVP Nausea & Vomiting 07/07/20 10:15 08/06/20 10:14 Sourav Kowalski MD Jul 09, 2020 14:01
--- NOTE | 2020-07-09 15:11 | General Progress Note ---
Subjective Allergies: Coded Allergies: No Known Allergies (Unverified , 07/06/20) Subjective feels better sob better covid 19 Objective Last 24 Hour Vital Signs Date Time Temp Pulse Resp B/P (MAP) Pulse Ox O2 Delivery O2 Flow Rate FiO2 07/09/20 12:00 97.2 73 18 129/68 (88) 98 07/09/20 09:00 Room Air 07/09/20 08:35 81 121/70 07/09/20 08:00 98.9 81 19 121/70 (87) 97 07/09/20 04:00 98.5 77 18 130/73 (92) 96 07/09/20 01:30 99.6 07/09/20 00:00 100.1 89 18 112/68 (83) 93 07/08/20 21:25 99.1 07/08/20 21:00 Room Air 07/08/20 20:00 100.8 91 20 128/82 (97) 95 07/08/20 16:00 97.4 74 20 141/81 (101) 100 07/08/20 16:00 92 Intake and Output 07/08/20 07/09/20 19:00 07:00 Intake Total 800 ml 360 ml Output Total 2550 ml Balance -1750 ml 360 ml Intake Oral 800 ml 360 ml Stool Total 550 ml Hemodialysis UF 2000 ml # Bowel Movements 3 Height (Feet): 6 Height (Inches): 2.00 Weight (Pounds): 180 General Appearance: alert EENT: PERRL/EOMI Neck: supple Cardiovascular: regular rhythm Respiratory/Chest: crackles/rales Abdomen: non tender, soft Extremities: non-tender Assessment/Plan Assessment/Plan: acs pvc hypotension hold bp meds monitor bp covod 19 chf fluid overload esrd on hd asa r/o mi cardio, pulmo nephro consullt renal diet cont isolation Cedric Nash MD Jul 09, 2020 15:11
[2020-07-09] MEDS: Enoxaparin 30mg Inj SUBQ SCH (17:48)
--- NOTE | 2020-07-09 18:09 | Cardiology Progress Note ---
Assessment/Plan Assessment/Plan 1. Slight elevation of troponin I level in this patient could be due to troponin leakage with end-stage renal disease, versus type 2 non-ST elevation myocardial infarction versus COVID-19 infection, continue aspirin, enoxaparin and metoprolol. 2. 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 3. COVID-19 infection. Chest x-ray showed no acute cardiopulmonary disease. Lovenox DVT prophylactic dose would be adequate. 4. End-stage renal disease. Subjective Subjective No cardiac events reported. Objective Last 24 Hour Vital Signs Date Time Temp Pulse Resp B/P (MAP) Pulse Ox O2 Delivery O2 Flow Rate FiO2 07/09/20 16:00 98.0 77 18 110/63 (79) 99 07/09/20 12:00 97.2 73 18 129/68 (88) 98 07/09/20 09:00 Room Air 07/09/20 08:35 81 121/70 07/09/20 08:00 98.9 81 19 121/70 (87) 97 07/09/20 04:00 98.5 77 18 130/73 (92) 96 07/09/20 01:30 99.6 07/09/20 00:00 100.1 89 18 112/68 (83) 93 07/08/20 21:25 99.1 07/08/20 21:00 Room Air 07/08/20 20:00 100.8 91 20 128/82 (97) 95 Intake and Output 07/08/20 07/09/20 19:00 07:00 Intake Total 800 ml 360 ml Output Total 2550 ml Balance -1750 ml 360 ml Intake Oral 800 ml 360 ml Stool Total 550 ml Hemodialysis UF 2000 ml # Bowel Movements 3 Microbiology Date/Time Source Procedure Growth Status 07/06/20 20:15 Blood Blood Culture - Preliminary NO GROWTH AFTER 48 HOURS Resulted 07/06/20 20:00 Blood Blood Culture - Preliminary NO GROWTH AFTER 48 HOURS Resulted Objective HEENT: Atraumatic and normocephalic. Anicteric. Pupils are equal, round, and reactive to light and accommodation. Extraocular muscles intact. NECK: JVP is less than 5 cm. No carotid bruit. Carotid upstrokes 2+ bilaterally. CARDIOVASCULAR: Normal S1, S2. Regular rate and rhythm. No murmurs, gallops, or rubs. PMI is at fourth intercostal space in the midclavicular line. LUNGS: Clear to auscultation bilaterally. ABDOMEN: Soft, nontender, and nondistended. No hepatosplenomegaly. Positive bowel sounds. EXTREMITIES: No evidence of edema, clubbing, or cyanosis. Jose Don MD Jul 09, 2020 18:09
[2020-07-09] MEDS: Atorvastatin 20mg tab ORAL SCH (20:32)
[2020-07-10 04:00] VITALS: BP 129/67
[2020-07-10 08:00] VITALS: BP 124/71
[2020-07-10] MEDS: Aspirin Baby 81mg ORAL SCH (08:43)
[2020-07-10] MEDS: Metoprolol Succinate XL 25mg tab ORAL SCH (08:43)
--- NOTE | 2020-07-10 10:05 | Pulmonology Progress Note ---
Subjective ROS Limited/Unobtainable: Yes Interval Events: None new Constitutional: Denies: fever HEENT: Repors: no symptoms Respiratory: Reports: no symptoms Cardiovascular: Reports: no symptoms Gastrointestinal/Abdominal: Reports: no symptoms Allergies: Coded Allergies: No Known Allergies (Unverified , 07/06/20) Objective Last 24 Hour Vital Signs Date Time Temp Pulse Resp B/P (MAP) Pulse Ox O2 Delivery O2 Flow Rate FiO2 07/10/20 09:00 Room Air 07/10/20 08:43 92 124/71 07/10/20 08:00 99.1 92 18 124/71 (88) 95 07/10/20 04:40 99.3 07/10/20 04:32 99.3 07/10/20 04:00 101.1 76 18 129/67 (87) 95 07/09/20 21:00 Room Air 07/09/20 20:33 162/78 07/09/20 20:24 162/78 (106) 07/09/20 20:23 98.0 102 18 158/72 (100) 97 07/09/20 19:44 99.1 98 18 121/71 (88) 94 07/09/20 16:00 98.0 77 18 110/63 (79) 99 07/09/20 12:00 97.2 73 18 129/68 (88) 98 Intake and Output 07/09/20 07/10/20 19:00 07:00 Intake Total 600 ml Balance 600 ml Intake Oral 600 ml # Voids 4 # Bowel Movements 2 General Appearance: WD/WN, no acute distress HEENT: normocephalic, atraumatic Respiratory: lungs clear Cardiovascular: normal rate, regular rhythm Abdomen: soft, non tender Current Medications Medications (Trade) Dose Ordered Sig/Simon Route PRN Reason Start Time Stop Time Status Last Admin Dose Admin Acetaminophen (Tylenol) 650 mg Q4H PRN ORAL Temp >100.5 07/08/20 21:00 08/07/20 20:59 07/10/20 04:02 Acetaminophen (Tylenol) 650 mg Q6H PRN ORAL Pain Scale (3-5) 07/07/20 10:15 08/06/20 10:14 Acetaminophen/ Hydrocodone Bitart ([place] 5/325) 1 tab Q4H PRN ORAL 6-10 07/07/20 10:15 07/14/20 10:14 07/08/20 00:15 Aspirin (ASA) 81 mg DAILY ORAL 07/07/20 17:45 08/21/20 17:44 07/10/20 08:43 Atorvastatin Calcium (Lipitor) 40 mg BEDTIME ORAL 07/07/20 21:00 10/05/20 20:59 07/09/20 20:32 Clonidine HCl (Catapres Tab) 0.1 mg TIDPRN PRN ORAL SBP>160 07/07/20 17:48 10/05/20 17:47 07/09/20 20:33 Enoxaparin Sodium (Lovenox) 30 mg Q24H SUBQ 07/07/20 18:00 10/05/20 17:59 07/09/20 17:48 Metoprolol Succinate (Toprol XL) 25 mg DAILY ORAL 07/07/20 17:45 10/05/20 17:44 07/10/20 08:43 Ondansetron HCl (Zofran) 4 mg Q6H PRN IVP Nausea & Vomiting 07/07/20 10:15 08/06/20 10:14 Assessment/Plan Assessment/Plan ssessment/Plan 1. COVID-19 infection. - The patient is currently saturating 96% on room air. - Chest x-ray shows no acute findings - Given his normoxemia, no specific intervention is needed for COVID-19 at this point. - Continue monitoring SaO2, and provide supplemental oxygen as needed. - Continue respiratory isolation. 2. Troponin leak 3. ESRD, on dialysis. Robin Key NP Jul 10, 2020 10:05
[2020-07-10 12:00] VITALS: BP 111/61
--- NOTE | 2020-07-10 12:32 | General Progress Note ---
Subjective Allergies: Coded Allergies: No Known Allergies (Unverified , 07/06/20) Subjective feels better sob better covid 19 Objective Last 24 Hour Vital Signs Date Time Temp Pulse Resp B/P (MAP) Pulse Ox O2 Delivery O2 Flow Rate FiO2 07/10/20 12:00 98.1 89 18 111/61 (78) 97 07/10/20 09:00 Room Air 07/10/20 08:43 92 124/71 07/10/20 08:00 99.1 92 18 124/71 (88) 95 07/10/20 04:40 99.3 07/10/20 04:32 99.3 07/10/20 04:00 101.1 76 18 129/67 (87) 95 07/09/20 21:00 Room Air 07/09/20 20:33 162/78 07/09/20 20:24 162/78 (106) 07/09/20 20:23 98.0 102 18 158/72 (100) 97 07/09/20 19:44 99.1 98 18 121/71 (88) 94 07/09/20 16:00 98.0 77 18 110/63 (79) 99 Intake and Output 07/09/20 07/10/20 19:00 07:00 Intake Total 600 ml Balance 600 ml Intake Oral 600 ml # Voids 4 # Bowel Movements 2 Height (Feet): 6 Height (Inches): 2.00 Weight (Pounds): 180 General Appearance: alert EENT: PERRL/EOMI Neck: supple Cardiovascular: regular rhythm Respiratory/Chest: lungs clear Abdomen: non tender, soft Extremities: non-tender Assessment/Plan Assessment/Plan: acs pvc hypotension hold bp meds monitor bp covod 19 chf fluid overload esrd on hd asa r/o mi cardio, pulmo nephro consullt renal diet cont isolation dc plan home with [facility] pcp in 1 week cont isolation 7 days Cedric Nash MD Jul 10, 2020 12:32
[2020-07-10] MEDS ORDERED: LIPITOR40 MG ORAL (13:00)
[2020-07-10] MEDS ORDERED: METOPROLOL SUCC25 MG ORAL (13:02)
[2020-07-10] MEDS ORDERED: ASPIRIN-LOW81 MG ORAL (13:03)
[2020-07-10] MEDS ORDERED: NEPHROVITE1 TAB ORAL (13:06)
[2020-07-10] MEDS ORDERED: IMODIUM A-1 MG/7.5 M PO (13:07)
--- NOTE | 2020-07-10 21:58 | Cardiology Progress Note ---
Assessment/Plan Assessment/Plan 1. Slight elevation of troponin I level in this patient could be due to troponin leakage with end-stage renal disease, versus type 2 non-ST elevation myocardial infarction versus COVID-19 infection, continue aspirin, enoxaparin and metoprolol. 2. 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 3. COVID-19 infection. Chest x-ray showed no acute cardiopulmonary disease. Lovenox DVT prophylactic dose would be adequate. 4. End-stage renal disease. Subjective Subjective No cardiac events reported. Objective Last 24 Hour Vital Signs Date Time Temp Pulse Resp B/P (MAP) Pulse Ox O2 Delivery O2 Flow Rate FiO2 07/10/20 12:00 98.1 89 18 111/61 (78) 97 07/10/20 09:00 Room Air 07/10/20 08:43 92 124/71 07/10/20 08:00 99.1 92 18 124/71 (88) 95 07/10/20 04:40 99.3 07/10/20 04:32 99.3 07/10/20 04:00 101.1 76 18 129/67 (87) 95 Intake and Output 07/09/20 07/10/20 18:59 06:59 Intake Total 600 ml Balance 600 ml Intake Oral 600 ml # Voids 4 # Bowel Movements 2 Objective HEENT: Atraumatic and normocephalic. Anicteric. Pupils are equal, round, and reactive to light and accommodation. Extraocular muscles intact. NECK: JVP is less than 5 cm. No carotid bruit. Carotid upstrokes 2+ bilaterally. CARDIOVASCULAR: Normal S1, S2. Regular rate and rhythm. No murmurs, gallops, or rubs. PMI is at fourth intercostal space in the midclavicular line. LUNGS: Clear to auscultation bilaterally. ABDOMEN: Soft, nontender, and nondistended. No hepatosplenomegaly. Positive bowel sounds. EXTREMITIES: No evidence of edema, clubbing, or cyanosis. Jose Don MD Jul 10, 2020 21:58
--- NOTE | 2020-07-11 12:58 | Discharge Summary ---
Discharge Summary Discharge Summary _ DATE OF ADMISSION: 07/06/2020 DATE OF DISCHARGE: 07/10/2020 DISCHARGED BY: Dr. Nash REASON FOR ADMISSION: 65 years old male with past medical history of end-stage renal disease, on hemodialysis, presented from home after dialysis with complaint of generalized weakness . Patient also reported cough with sputum production, several episodes of nonbloody emesis and increased generalized weakness. He denied fever and chills. He denied chest pain and shortness of breath. He denied lower extremities swelling. No headache or dizziness. Upon evaluation vital signs were stable. Rapid COVID-19 was positive. WBC 3.2 ,hemoglobin 13.6, hematocrit 41, platelet count 138. BUN 35, creatinine 7.2, consistent with known history of end-stage renal disease. Troponin 0.108, pro BNP 1228. Ferritin 1522, LDH 293, CRP 7.4, D-dimer 0.49. Chest x-ray revealed no acute cardiopulmonary pathology. In emergency department patient received aspirin, empiric antibiotic, steroids and admitted for further management. CONSULTANTS: electronics production supervisor Dr. Don pulmonary Dr. Carranza ID specialist Dr. Sourav Kowalski finishing area supervisor Dr. Condon [facility] COURSE: Patient admitted to isolation room. Pulse oximetry remained stable on room air. Blood culture came back negative. Patient was observed off antibiotics . No need for steroids given the patient was not hypoxic. Respiratory status was closely monitored : pulse oximetry remained stable on room air. Elevation in troponin was possibly due to troponin leak due to end-stage renal disease , however possible type II NSTEMI due to COVID-19 infection was highly likely. Aspirin, Lovenox and beta-blockade continued as per cardiology recommendation. Patient demonstrated on telemetry trifascicular block. Heart rate and rhythm were closely monitored. Dialysis provided as per finishing area supervisor recommendations with close monitoring of volumes , renal parameters and electrolytes. Hemoglobin and hematocrit were closely monitored , remained at baseline. Patient clinically stabilized and was ready for discharge FINAL DIAGNOSES: COVID-19 disease Acute coronary syndrome Possible NSTEMI type II End-stage renal disease, on hemodialysis Anemia of chronic kidney disease Renal osteodystrophy Leukopenia Thrombocytopenia DISCHARGE MEDICATIONS: See Medication Reconciliation list. DISCHARGE INSTRUCTIONS: Patient was discharged home . Continue isolation for 1 week as advised. Follow up with primary care provider in one week. I have been assigned to dictate discharge summary for this account. I was not involved in the patient's management. Emelyn Hamilton NP Jul 11, 2020 12:58
== END 2020-07-10 14:45 | disposition home or self-care (01) | DRG 177 ==
LOC: EDBD 12:17 → EMR 14:10 → 2E 14:18 → EDBEDREQ 07-07 05:11 → 2E 07-07 14:54 → 4E 07-08 18:42
PROC: 5A1D70Z Performance of Urinary Filtration, Intermittent, Less than 6 Hours Per Day (ICD-10-PCS; principal; 2020-07-08)
DX: U07.1 COVID-19 (principal); I21.4 Non-ST elevation (NSTEMI) myocardial infarction; N18.6 End stage renal disease; I13.2 Hypertensive heart and chronic kidney disease with heart failure and with stage 5 chronic kidney disease, or end stage renal disease; I45.3 Trifascicular block; I50.9 Heart failure, unspecified; Z99.2 Dependence on renal dialysis; N25.0 Renal osteodystrophy; D69.6 Thrombocytopenia, unspecified
CPT/HCPCS: 36415; 71045; 80048; 80053; 82550; 82728; 83605; 83615; 83880; 84100; 84484; 85007; 85025; 85379; 85610; 85730; 86140; 86706; 87040; 87081; 93005; 96365; 96367; 96375; 99285; U0002